=== PATIENT | male | born 1940 | race Caucasian/White ===

== ENCOUNTER 2016-10-06 13:43 | Inpatient (IN) | payer OTHER, MEDICARE ==
[~2016-10-06] VITALS: Ht 182.9 cm; Wt 55.0 kg
[2016-10-06 13:46] VITALS: BP 90/51; PULSE 95; RESP 14; TEMP 97.6; O2SAT 95
[2016-10-06] MEDS ORDERED: PRAD75CA PO (14:25)
[2016-10-06] MEDS ORDERED: SODIUM CHLOR 0.9% 1000 ML INJ 1,000 ML IV SCH (14:33)
[2016-10-06] MEDS ORDERED: MORPHINE SULFATE 8 MG/ML INJ IV PUSH ONE (14:45)
[2016-10-06] MEDS ORDERED: ONDANSETRON HCL 4 MG/2 ML VIAL IVP ONE (14:45)
--- NOTE | 2016-10-06 14:56 | RADRPT ---
EXAM DATE/TIME: 10/06/2016 14:35 [facility] COMPARISON: No previous studies available for comparison. INDICATIONS : Fever, constipation, short of breath. MEDICAL HISTORY : None. SURGICAL HISTORY : None. ENCOUNTER: Initial ACUITY: 1 day PAIN SCORE: 0/10 LOCATION: Bilateral chest FINDINGS: Lungs are slightly hyperexpanded. There are subcentimeter nodular opacities noted in the left lower l obe. Cardiomediastinal contours are within normal limits. Bony thorax is intact. CONCLUSION: 1. At least 2 subcentimeter nodular opacities in the left lower lobe. The largest may reflect a nippl e shadow. This can be further evaluated with CT examination on outpatient basis. Jonah Rodriguez MD on October 06, 2016 at 14:52 Board Certified Radiologist. This report was verified electronically.
[2016-10-06 15:22] VITALS: BP 120/58; PULSE 70; RESP 15; O2SAT 96
[2016-10-06 15:23] LABS: AUTOMATED NEUTROPHIL # 4.4 TH/MM3 (1.8-7.7); BASOPHIL % 0.2 % (0.0-2.0); EOSINOPHIL # 0.2 TH/MM3 (0-0.4); EOSINOPHIL % 1.8 % (0.0-4.0); HEMATOCRIT 44.1 % (39.0-51.0); HEMO FLAGS DIFF FINAL; LYMPH % 41.5 % (9.0-44.0); LYMPHOCYTE # 4.1 TH/MM3 (1.0-4.8); MEAN CELL VOLUME 87.9 FL (80.0-100.0); MEAN CORPUSCULAR HEMOGLOBIN 29.1 PG (27.0-34.0); MEAN CORPUSCULAR HGB CONC 33.2 % (32.0-36.0); MONO % 12.2 % (0.0-8.0); NEUT % 44.3 % (16.0-70.0); PLATELET COUNT 371 TH/MM3 (150-450); RED BLOOD COUNT 5.02 MIL/MM3 (4.50-5.90); RED CELL DISTRIBUTION WIDTH 14.8 % (11.6-17.2)
--- NOTE | 2016-10-06 15:29 | PD ---
HPI Chief Complaint: Abnormal Results Time Seen by Provider: 15:24 Travel History International Travel<30 days: Yes Contact w/Intl Traveler<30days: Yes Name of Country Traveled to: [place] Traveled to known affect area: No History of Present Illness HPI 75-year-old patient that presents to the ED for evaluation of abnormal CT scan. Patient states that he was recently nostril to the [place] [facility] and he developed a DVT on his right leg. Per patient at the time they put him on Lovenox injections in the let him come back. Patient has been taking Pradaxa since. Per patient ever since his been developing some abdominal pain as well as nausea and vomiting. Per patient he has lost a lot of weight. Bowel movements have been normal but more frequent. He denies any chest pain. He denies any shortness of breath. He is a long standing smoker. He states compliant with the Pradaxa. Per patient he on was seen by Dr. Love who perform a CT scan at that today and the CT scan results came back today which show concerning for possible ischemic bowel. We have received the reports by Dr. Love which showed abnormal results. Patient was sent here for further evaluation as there is concern for ischemia. Patient states that he's also been losing a lot of weight. He denies any other medical issue. No history of cancer.. PFSH Past Medical History Hx Anticoagulant Therapy: Yes (PRADEXA) Social History Alcohol Use: No Tobacco Use: Yes Substance Use: No Allergies-Medications (Allergen,Severity, Reaction): Coded Allergies: No Known Allergies (Unverified , 10/06/16) Reported Meds & Prescriptions Reported Meds & Active Scripts Active Reported Pradaxa (Dabigatran) 75 Mg Cap 75 Mg PO BID Review of Systems Except as stated in HPI: all other systems reviewed are Neg Physical Exam Narrative GENERAL: SKIN: Warm and dry. HEAD: Atraumatic. Normocephalic. EYES: Pupils equal and round. No scleral icterus. No injection or drainage. ENT: No nasal bleeding or discharge. Mucous membranes pink and moist. Tongue is midline. No uvula deviation. NECK: Trachea midline. No JVD. CARDIOVASCULAR: Regular rate and rhythm. No murmurs, S3, S4. RESPIRATORY: No accessory muscle use. Clear to auscultation. Breath sounds equal bilaterally. GASTROINTESTINAL: Abdomen soft, patient has reproducible pain on the epigastric as well as the lower abdomen, nondistended. Hepatic and splenic margins not palpable. MUSCULOSKELETAL: Extremities without clubbing, cyanosis, or edema. No obvious deformities. NEUROLOGICAL: Awake and alert. No obvious cranial nerve deficits. Motor grossly within normal limits. Five out of 5 muscle strength in the arms and legs. Normal speech. PSYCHIATRIC: Appropriate mood and affect; insight and judgment normal. Data Data Last Documented VS Vital Signs Date Time Temp Pulse Resp B/P Pulse Ox O2 Delivery O2 Flow Rate FiO2 10/06/16 17:35 65 15 100/55 96 Room Air 10/06/16 13:46 97.6 Orders Complete Blood Count With Diff (10/06/16 14:33) Comprehensive Metabolic Panel (10/06/16 14:33) Lipase (10/06/16 14:33) Lactic Acid (10/06/16 14:33) Prothrombin Time / Inr (Pt) (10/06/16 14:33) Act Partial Throm Time (Ptt) (10/06/16 14:33) Urinalysis - C+S If Indicated (10/06/16 14:33) Iv Access Insert/Monitor (10/06/16 14:33) Oximetry (10/06/16 14:33) Ondansetron Inj (Zofran Inj) (10/06/16 14:45) Sodium Chlor 0.9% 1000 Ml Inj (Ns 1000 M (10/06/16 14:33) Electrocardiogram (10/06/16 14:33) Morphine Inj (Morphine Inj) (10/06/16 14:45) Chest, Single Ap (10/06/16 ) Amylase (10/06/16 15:02) Cta Abd/Pel W Iv Contrast W 3d (10/06/16 ) Blood Culture (10/06/16 16:23) Iohexol 350 Inj (Omnipaque 350 Inj) (10/06/16 17:05) Admit Order (Ed Use Only) (10/06/16 18:47) Labs Laboratory Tests Test 10/06/16 10/06/16 10/06/16 10/06/16 14:45 15:08 15:09 15:45 White Blood Count 10.0 TH/MM3 Red Blood Count 5.02 MIL/MM3 Hemoglobin 14.6 GM/DL Hematocrit 44.1 % Mean Corpuscular Volume 87.9 FL Mean Corpuscular Hemoglobin 29.1 PG Mean Corpuscular Hemoglobin 33.2 % Concent Red Cell Distribution Width 14.8 % Platelet Count 371 TH/MM3 Mean Platelet Volume 7.2 FL Neutrophils (%) (Auto) 44.3 % Lymphocytes (%) (Auto) 41.5 % Monocytes (%) (Auto) 12.2 % Eosinophils (%) (Auto) 1.8 % Basophils (%) (Auto) 0.2 % Neutrophils # (Auto) 4.4 TH/MM3 Lymphocytes # (Auto) 4.1 TH/MM3 Monocytes # (Auto) 1.2 TH/MM3 Eosinophils # (Auto) 0.2 TH/MM3 Basophils # (Auto) 0.0 TH/MM3 CBC Comment DIFF FINAL Differential Comment Sodium Level 129 MEQ/L Potassium Level 5.4 MEQ/L Chloride Level 100 MEQ/L Carbon Dioxide Level 21.3 MEQ/L Anion Gap 8 MEQ/L Blood Urea Nitrogen 14 MG/DL Creatinine 1.13 MG/DL Estimat Glomerular Filtration 63 ML/MIN Rate Random Glucose 73 MG/DL Calcium Level 7.7 MG/DL Total Bilirubin 0.5 MG/DL Aspartate Amino Transf 33 U/L (AST/SGOT) Alanine Aminotransferase 8 U/L (ALT/SGPT) Alkaline Phosphatase 120 U/L Total Protein 5.9 GM/DL Albumin 1.3 GM/DL Amylase Level 30 U/L Lipase 91 U/L Lactic Acid Level 1.6 mmol/L Prothrombin Time 16.1 SEC Prothromb Time International 1.4 RATIO Ratio Activated Partial 48.8 SEC Thromboplast Time Urine Color YELLOW Urine Turbidity HAZY Urine pH 5.5 Urine Specific [place] 1.028 Urine Protein TRACE mg/dL Urine Glucose (UA) NEG mg/dL Urine Ketones NEG mg/dL Urine Occult Blood NEG Urine Nitrite NEG Urine Bilirubin NEG Urine Urobilinogen LESS THAN 2.0 MG/DL Urine Leukocyte Esterase NEG Urine RBC 1 /hpf Urine WBC 4 /hpf Urine Squamous Epithelial <1 /hpf Cells Urine Amorphous Sediment RARE Urine Mucus FEW /lpf Microscopic Urinalysis Comment CULT NOT INDICATED MDM Medical Decision Making Medical Screen Exam Complete: Yes Emergency Medical Condition: Yes Medical Record Reviewed: Yes Interpretation(s) CBC & BMP Diagram 10/06/16 14:45 Last Impressions Chest X-Ray 10/06/16 0000 Signed Impressions: Service Date/Time: Thursday, October 06, 2016 14:35 - CONCLUSION: 1. At least 2 subcentimeter nodular opacities in the left lower lobe. The largest may reflect a nipple shadow. This can be further evaluated with CT examination on outpatient basis. Jonah Rodriguez MD Abdomen/Pelvis CT 10/06/16 0000 Signed Impressions: Service Date/Time: Thursday, October 06, 2016 16:56 - CONCLUSION: 1. Widely patent abdominal aorta and mesenteric arteries. No significant mesenteric artery stenosis. 2. Mild diffuse wall thickening involving multiple loops of ileum with minimally dilated loops of more proximal jejunum. No focal transition point. Differential considerations include infectious/inflammatory enteritis vs outflow mesenteric venous congestion which is not evaluated on this exam due to early arterial phase technique. Clinical correlation is recommended. Further evaluation may be performed with ultrasound examination and if necessary portal venous phase CT examination. Jonah Rodriguez MD LFTs WNL Lipase WNL Differential Diagnosis Ischemic bowel versus acute abdominal pain versus obstruction versus enteritis versus gastroenteritis Narrative Course 75-year-old male that presents to the ED for evaluation of abnormal CT scan. Patient was properly examined and was found to have signs and symptoms consistent with appears to be abdominal pain. Patient had a CT scan done outpatient that showed possible ischemic changes but they wanted correlation with physical exam as well as lactic acid and other studies. Case was discussed in my attending Dr. Alanis who agrees with plan. Labs and imaging were ordered. labs and imaging showed hyponatremia, hyperkalemia, no ischemia, enteritis. patient still in pain. At this time because of his weight loss, pain I do recommend admission for obs for intractable pain. My attending Dr Alanis agrees with this plan. Dr Riojas agrees to admission. Diagnosis Primary Impression: Intractable abdominal pain Additional Impressions: Enteritis Hyperkalemia Hyponatremia Admitting Information Admitting Physician Requests: Observation Kolby Lo Oct 06, 2016 15:29
[2016-10-06 15:31] VITALS: BP 135/60; PULSE 70; RESP 15; O2SAT 96
[2016-10-06 15:39] LABS: APTT (PATIENT) 48.8 SEC (24.3-30.1); INTERNATIONAL NORMALIZED RATIO 1.4 RATIO; PROTHROMBIN TIME - PATIENT 16.1 SEC (9.8-11.6)
[2016-10-06 15:43] LABS: ALT (GPT) 8 U/L (12-78); ANION GAP 8 MEQ/L (5-15); AST (GOT) 33 U/L (15-37); BICARBONATE 21.3 MEQ/L (21.0-32.0); BLOOD UREA NITROGEN 14 MG/DL (7-18); CHLORIDE 100 MEQ/L (98-107); GLOMERULAR FILTRATION RATE 63 ML/MIN (>89); POTASSIUM 5.4 MEQ/L (3.5-5.1); SODIUM (NA) 129 MEQ/L (136-145)
[2016-10-06 15:44] LABS: ALKALINE PHOSPHATASE 120 U/L (45-117); TOTAL BILIRUBIN ADULT 0.5 MG/DL (0.2-1.0)
[2016-10-06 16:27] LABS: BLOOD, URINE NEG (NEG); COMMENT (UR) CULT NOT INDICATED; CULTURE IF INDICATED CULT NOT INDICATED; GLUCOSE,URINE NEG (NEG); KETONE, URINE NEG (NEG); MUCUS URINE FEW /lpf (OCC); NITRITE,URINE NEG (NEG); PH, URINE 5.5 (5.0-8.5); SQUAMOUS EPITHELIAL CELL URINE <1 /hpf (0-5); URINE COLOR YELLOW (YELLW/STRAW)
[2016-10-06] MEDS ORDERED: IOHEXOL 350 MG/ML 10 ML VIAL (for RAD DIAG) IV ONE (17:05)
[2016-10-06 17:35] VITALS: BP 100/55; PULSE 65; RESP 15; O2SAT 96
--- NOTE | 2016-10-06 17:59 | RADRPT ---
EXAM DATE/TIME: 10/06/2016 16:56 [facility] COMPARISON: No previous studies available for comparison. EXTERNAL COMPARISON : [facility] October 03, 2016 INDICATIONS : Evaluate for ischemic bowel. IV CONTRAST: 95 cc Omnipaque 350 (iohexol) IV ORAL CONTRAST: No oral contrast ingested. RADIATION DOSE: 4.19 CTDIvol (mGy) MEDICAL HISTORY : Deep venous thrombosis. SURGICAL HISTORY : Appendectomy. ENCOUNTER: Initial ACUITY: 2 months PAIN SCALE: 5/10 LOCATION: Bilateral abdomen TECHNIQUE: Volumetric scanning was performed using a multi-row detector CT scanner. The data was post processed with a variety of visualization algorithms including full volume maximum intensity projection, multi -planar sliding thin slab reformation, curved planar reformation, and surface rendering techniques. Using automated exposure control and adjustment of the mA and/or kV according to patient size, radiat ion dose was kept as low as reasonably achievable to obtain optimal diagnostic quality images. DICOM format image data is available electronically for review and comparison. ANGIOGRAPHIC FINDINGS: The abdominal aorta is normal in caliber without evidence for aneurysm or significant flow-limiting s tenosis. The iliac arteries are widely patent bilaterally. Visualized portions of the femoral arterie s are also widely patent. Celiac, SMA, and NELLY are widely patent. There are single bilateral renal arteries which are widely pa tent. GENERAL FINDINGS: Visualized lung bases demonstrate mild scarring in the right lung base. There is reflux of contrast i nto the intrahepatic IVC which may reflect some degree of right heart dysfunction. Evaluation of the abdominal viscera is limited due to arterial phase technique. Liver, spleen, adrenal glands, pancreas , and gallbladder are grossly unremarkable. Kidneys demonstrate symmetrical enhancement without evide nce for hydronephrosis or radiopaque renal calculi. 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 Beyond this, proximal jejunal loops are mildly distended and fluid-filled without a defini te transition point to a smaller caliber ileal loops. However, the smaller caliber loops demonstrate wall thickening that is out of proportion for the degree of decompression. Bowel appears grossly unre markable with contrast in it in the descending colon. Bladder is mildly distended and appears unremarkable. Prostate is nonspecifically enlarged. There are no abnormal lytic or blastic bony lesions. CONCLUSION: 1. Widely patent abdominal aorta and mesenteric arteries. No significant mesenteric artery stenosis. 2. Mild diffuse wall thickening involving multiple loops of ileum with minimally dilated loops of mor e proximal jejunum. No focal transition point. Differential considerations include infectious/inflamm atory enteritis vs outflow mesenteric venous congestion which is not evaluated on this exam due to ea rly arterial phase technique. Clinical correlation is recommended. Further evaluation may be performe d with ultrasound examination and if necessary portal venous phase CT examination. Jonah Rodriguez MD on October 06, 2016 at 17:35 Board Certified Radiologist. This report was verified electronically.
[2016-10-06] MEDS ORDERED: HYDROmorphone HCL PF 1 MG/ML VIAL IV PUSH PRN (19:00)
[2016-10-06] MEDS ORDERED: MAGNESIUM HYDROXIDE SUSP 30 ML CUP PO PRN (19:00)
[2016-10-06] MEDS ORDERED: LACTULOSE SYRUP 20 GM/30 ML CUP PO PRN (19:00)
[2016-10-06] MEDS ORDERED: NALOXONE HCL 0.4 MG/ML AMP IV PRN (19:00)
[2016-10-06] MEDS ORDERED: BISACODYL 10 MG SUPP RECTAL PRN (19:00)
[2016-10-06] MEDS ORDERED: ACETAMINOPHEN/HYDROcodone 325 MG/5 MG TAB PO PRN (19:00)
[2016-10-06] MEDS ORDERED: SENNOSIDES 8.6 MG TAB PO PRN (19:00)
[2016-10-06] MEDS ORDERED: ACETAMINOPHEN/HYDROcodone 325 MG/10 MG TAB PO PRN (19:00)
[2016-10-06] MEDS ORDERED: ONDANSETRON HCL 4 MG/2 ML VIAL IVP PRN (19:00)
[2016-10-06] MEDS ORDERED: SODIUM CHLORIDE 0.9% FLUSH 10 ML FLUSH IV FLUSH PRN (19:00)
[2016-10-06] MEDS ORDERED: METOCLOPRAMIDE HCL 10 MG/2 ML VIAL IV PUSH ONE (19:00)
[2016-10-06] MEDS: SODIUM CHLORIDE 0.9% FLUSH 10 ML FLUSH IV FLUSH SCH (21:00)
[2016-10-06] MEDS ORDERED: DOCUSATE SODIUM 50 MG/SENNA 8.6 MG TAB PO SCH (21:00)
[2016-10-06] MEDS: SODIUM CHLOR 0.9% 1000 ML INJ 1,000 ML IV SCH (21:20)
--- NOTE | 2016-10-06 22:31 | HHI.HP ---
[facility] Service [facility] Primary Care Physician Non-Staff Admission Diagnosis Intractable abdominal pain with N/V, enteritis, lung nodules Diagnoses: Chief Complaint: abdominal pain, nausea and vomiting Travel History International Travel<30 Days: Yes Contact w/Intl Traveler <30 Da: Yes Name of Country Traveled to: [place] Traveled to Known Affected Are: No History of Present Illness Written by Nelda Cummings, acting as scribe for [Re] on 10/06/16 at 22:10. 75 y/o male with a history of abdominal pain and nausea and vomiting for the last 8 months. Patient states he has lost 42 lbs in 8 months, sick feeling after eating, easily full feeling, if he over eats he has severe nausea and vomiting. Also complains of 2-3 times a day diarrhea, green in color, with mucus for the last 6 weeks. Denies any black or red colored stools. The only medication he takes is Pradaxa for a DVT in his right leg August 2016. He was diagnosed in [place] and he was treated with Lovenox and recently seen his PCP that then switched him to Pradaxa. Denies any recent antibiotic use. Denies any hematuria or dysuria. He states he has slight fevers but does not measure it at home, he states his told him he was warm feeling. Review of Systems Constitutional: COMPLAINS OF: Weight loss, DENIES: Fever, Chills Respiratory: DENIES: Cough, Sputum production, Shortness of breath Cardiovascular: DENIES: Chest pain, Lower Extremity Edema Gastrointestinal: COMPLAINS OF: Abdominal pain, Diarrhea, Nausea, Vomiting, DENIES: Black stools, Bloody stools, Constipation Genitourinary: DENIES: Hematuria, Dysuria Musculoskeletal: DENIES: Back pain, Neck pain Integumentary: DENIES: Rash Hematologic/lymphatic: DENIES: Lymphadenopathy Neurologic: DENIES: Headache Past Family Social History Past Medical History Reoccurring Right leg DVT, 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 Past Surgical History Appendectomy Tonsillectomy Reported Medications Reported Meds & Active Scripts Active Reported Pradaxa (Dabigatran) 75 Mg Cap 75 Mg PO BID Allergies: Coded Allergies: No Known Allergies (Unverified , 10/06/16) Active Ordered Medications Current Medications Medications (Trade) Dose Ordered Sig/Margo Route Start Time Stop Time Status Last Admin (NS 1000 ml Inj) 1,000 ml @ 100 mls/hr Q10H IV 10/06/16 18:47 10/06/16 21:20 (NS Flush) 2 ml UNSCH PRN IV FLUSH 10/06/16 19:00 (NS Flush) 2 ml BID IV FLUSH 10/06/16 21:00 10/06/16 21:00 (Zofran Inj) 4 mg Q6H PRN IVP 10/06/16 19:00 (Narcan Inj) 0.4 mg UNSCH PRN IV 10/06/16 19:00 (Maddison-Colace) 1 tab BID PO 10/06/16 21:00 (Milk Of Magnesia Liq) 30 ml Q12H PRN PO 10/06/16 19:00 (Senokot) 17.2 mg Q12H PRN PO 10/06/16 19:00 (Dulcolax Supp) 10 mg DAILY PRN RECTAL 10/06/16 19:00 (Lactulose Liq) 30 ml DAILY PRN PO 10/06/16 19:00 ([place] 5-325 Mg) 1 tab Q4H PRN PO 10/06/16 19:00 ([place] 10-325 Mg) 1 tab Q6H PRN PO 10/06/16 19:00 (Dilaudid Pf Inj) 0.5 mg Q4H PRN IV PUSH 10/06/16 19:00 Family History Mom: HF, age 82 Social History Tobacco use: 1/2 PPD Alcohol use: 2 beers a week Illicit drug use: Denies Physical Exam Vital Signs Vital Signs Date Time Temp Pulse Resp B/P Pulse Ox O2 Delivery O2 Flow Rate FiO2 10/06/16 17:35 65 15 100/55 96 Room Air 10/06/16 15:31 70 15 135/60 96 Room Air 10/06/16 15:22 70 15 120/58 96 Room Air 10/06/16 15:22 15 96 Room Air 10/06/16 13:46 97.6 95 14 90/51 95 Physical Exam GENERAL: This is a thin, malnourished patient SKIN: No rashes, ecchymoses or lesions. Cool and dry. HEAD: Atraumatic. Normocephalic. No temporal or scalp tenderness. EYES: Pupils equal round and reactive. Extraocular motions intact ENT: Nose without bleeding, purulent drainage or septal hematoma. NECK: Trachea midline. No JVD or lymphadenopathy. CARDIOVASCULAR: Regular rate and rhythm without murmurs, gallops, or rubs. RESPIRATORY: Clear to auscultation. Breath sounds equal bilaterally. No wheezes , rales, or rhonchi. GASTROINTESTINAL: Abdomen soft, tender, nondistended. No hepato-splenomegaly, or palpable masses. No guarding. MUSCULOSKELETAL: Extremities without clubbing, cyanosis, or edema. No joint tenderness, effusion, or edema noted. No calf tenderness. NEUROLOGICAL: Awake and alert. Motor and sensory grossly within normal limits. Normal speech. Laboratory Laboratory Tests Test 10/06/16 10/06/16 10/06/16 10/06/16 14:45 15:08 15:09 15:45 White Blood Count 10.0 Red Blood Count 5.02 Hemoglobin 14.6 Hematocrit 44.1 Mean Corpuscular Volume 87.9 Mean Corpuscular Hemoglobin 29.1 Mean Corpuscular Hemoglobin 33.2 Concent Red Cell Distribution Width 14.8 Platelet Count 371 Mean Platelet Volume 7.2 Neutrophils (%) (Auto) 44.3 Lymphocytes (%) (Auto) 41.5 Monocytes (%) (Auto) 12.2 Eosinophils (%) (Auto) 1.8 Basophils (%) (Auto) 0.2 Neutrophils # (Auto) 4.4 Lymphocytes # (Auto) 4.1 Monocytes # (Auto) 1.2 Eosinophils # (Auto) 0.2 Basophils # (Auto) 0.0 CBC Comment DIFF FINAL Differential Comment Sodium Level 129 Potassium Level 5.4 Chloride Level 100 Carbon Dioxide Level 21.3 Anion Gap 8 Blood Urea Nitrogen 14 Creatinine 1.13 Estimat Glomerular Filtration 63 Rate Random Glucose 73 Calcium Level 7.7 Total Bilirubin 0.5 Aspartate Amino Transf 33 (AST/SGOT) Alanine Aminotransferase 8 (ALT/SGPT) Alkaline Phosphatase 120 Total Protein 5.9 Albumin 1.3 Amylase Level 30 Lipase 91 Lactic Acid Level 1.6 Prothrombin Time 16.1 Prothromb Time International 1.4 Ratio Activated Partial 48.8 Thromboplast Time Urine Color YELLOW Urine Turbidity HAZY Urine pH 5.5 Urine Specific [place] 1.028 Urine Protein TRACE Urine Glucose (UA) NEG Urine Ketones NEG Urine Occult Blood NEG Urine Nitrite NEG Urine Bilirubin NEG Urine Urobilinogen LESS THAN 2.0 Urine Leukocyte Esterase NEG Urine RBC 1 Urine WBC 4 Urine Squamous Epithelial <1 Cells Urine Amorphous Sediment RARE Urine Mucus FEW Microscopic Urinalysis Comment CULT NOT INDICATED Date/Time Procedure Status Source Growth 10/06/16 15:15 Aerobic Blood Culture Received Blood Peripheral Pending 10/06/16 15:15 Anaerobic Blood Culture Received Blood Peripheral Pending Result Diagram: 10/06/16 1445 10/06/16 1445 Imaging Last Impressions Chest X-Ray 10/06/16 0000 Signed Impressions: Service Date/Time: Thursday, October 06, 2016 14:35 - CONCLUSION: 1. At least 2 subcentimeter nodular opacities in the left lower lobe. The largest may reflect a nipple shadow. This can be further evaluated with CT examination on outpatient basis. Jonah Rodriguez MD Abdomen/Pelvis CT 10/06/16 0000 Signed Impressions: Service Date/Time: Thursday, October 06, 2016 16:56 - CONCLUSION: 1. Widely patent abdominal aorta and mesenteric arteries. No significant mesenteric artery stenosis. 2. Mild diffuse wall thickening involving multiple loops of ileum with minimally dilated loops of more proximal jejunum. No focal transition point. Differential considerations include infectious/inflammatory enteritis vs outflow mesenteric venous congestion which is not evaluated on this exam due to early arterial phase technique. Clinical correlation is recommended. Further evaluation may be performed with ultrasound examination and if necessary portal venous phase CT examination. Jonah Rodriguez MD Assessment and Plan Problem List: (1) Intractable abdominal pain ICD Code: R10.9 Status: Acute (2) Hyperkalemia ICD Code: E87.5 Status: Acute (3) Hyponatremia ICD Code: E87.1 Status: Acute Assessment and Plan 75 y/o male with a history of abdominal pain and nausea and vomiting for the last 8 months. Intractable abdominal pain with nausea, likely infectious due to recent travel to [place]. Also has been to [place], [place] Abdomen CT reviewed and shows Widely patent abdominal aorta and mesenteric arteries. No significant mesenteric artery stenosis. Mild diffuse wall thickening involving multiple loops of ileum with minimally dilated loops of more proximal jejunum. No focal transition point. Differential considerations include infectious/inflammatory enteritis vs outflow mesenteric venous congestion which is not evaluated on this exam due to early arterial phase technique. -Consult GI for recommendations -Stool studies ordered- r/o parasitic infections -Hold Pradaxa for now in case of GI procedure -Antiemetics as needed Hyperkalemia and hyponatremia. Potassium 5.4, NA 129 -IVF with NS -BMP in AM, and trend Abnormal chest xray finding Xray reviewed and shows at least 2 subcentimeter nodular opacities in the left lower lobe. The largest may reflect a nipple shadow. This can be further evaluated with CT examination on outpatient basis. -Patient does not want expensive inpatient workup, he rather do work up out patient -Patient will need CT chest as outpatient Hx of Recent DVT - start on lovenox therapeutic dose - will stop 12hrs ahead of possible GI procedures- if no procedures, then will ct pradaxa DVT prophylaxis: Lovenox therapeutic dose This note was transcribed by scribe [Nelda Cummings]. I, Dr. Conrad Grimaldo personally performed the history, physical exam, and medical decision making; and confirmed the accuracy of the information in the transcribed note. Authenticated by Dr. Conrad Grimaldo on 10/06/16 at 22:10. Discussed Condition With Patient, and ED physician Nelda Cummings Oct 06, 2016 22:31 Conrad Grimaldo MD Oct 07, 2016 07:18
[2016-10-06] MEDS ORDERED: METOCLOPRAMIDE HCL 10 MG/2 ML VIAL IV PUSH PRN (22:45)
[2016-10-07] VITALS (7 sets, daily range): BP systolic 91–137; BP diastolic 54–92; PULSE 56–81; RESP 16–20; TEMP 96.5–98.7; O2SAT 94–98
[2016-10-07] MEDS: SODIUM CHLOR 0.9% 1000 ML INJ 1,000 ML IV SCH ×2 (04:29→15:05)
[2016-10-07 07:01] LABS: AUTOMATED NEUTROPHIL # 4.3 TH/MM3 (1.8-7.7); BASOPHIL % 0.4 % (0.0-2.0); EOSINOPHIL # 0.2 TH/MM3 (0-0.4); EOSINOPHIL % 2.9 % (0.0-4.0); HEMATOCRIT 36.6 % (39.0-51.0); HEMO FLAGS DIFF FINAL; LYMPH % 31.9 % (9.0-44.0); LYMPHOCYTE # 2.7 TH/MM3 (1.0-4.8); MEAN CELL VOLUME 87.6 FL (80.0-100.0); MEAN CORPUSCULAR HEMOGLOBIN 28.3 PG (27.0-34.0); MEAN CORPUSCULAR HGB CONC 32.2 % (32.0-36.0); MONO % 13.7 % (0.0-8.0); NEUT % 51.1 % (16.0-70.0); PLATELET COUNT 331 TH/MM3 (150-450); RED BLOOD COUNT 4.17 MIL/MM3 (4.50-5.90); RED CELL DISTRIBUTION WIDTH 14.1 % (11.6-17.2); WHITE BLOOD COUNT 8.4 TH/MM3 (4.0-11.0)
[2016-10-07 07:27] LABS: BICARBONATE 25.9 MEQ/L (21.0-32.0)
[2016-10-07 07:42] LABS: CALCIUM-PROTEIN CORRECTED 8.5 MG/DL (8.5-10.1)
--- NOTE | 2016-10-07 07:55 | PD.CONS ---
HPI History of Present Illness This is a 75 year old male who presented to the ER for evaluation of nausea, vomiting, diarrhea, and abdominal pain with associated weight loss. His symptoms began about 8 months ago and he has lost 42 lbs during this time period , but has been more often and severe over the past 6 weeks. He states that he gets hungry, but just cannot eat and cannot force himself to eat. He has frequent nausea and occasionally, probably twice over the past 6 months. He states he has had intermittent diarrhea, usually 2-3 loose stools per day. He did see a small amount of red blood mixed within his stool about a month ago, but has not had any further episodes. He complains of LUQ cramping- this comes and goes. Sometimes it is related to food intake and other times, it does not seem to be related to anything. He has never had an egd/colonoscopy and states that he does not want one either. He has a history of right lower extremity DVT (diagnosed in August of 2016) and takes Pradaxa. He has not been on antibiotics in the last 6 months to a year. He denies any new medications. He recently traveled to [place] about 3 weeks ago. He travels for work and states that he was in the [place] last year. He denies any family history of esophageal, gastric, or colorectal cancer. CT scan abdomen and pelvis ()------> 1. Widely patent abdominal aorta and mesenteric arteries. No significant mesenteric artery stenosis. 2. Mild diffuse wall thickening involving multiple loops of ileum with minimally dilated loops of more proximal jejunum. No focal transition point. Differential considerations include infectious/inflammatory enteritis vs outflow mesenteric venous congestion which is not evaluated on this exam due to early arterial phase technique. Clinical correlation is recommended. Further evaluation may be performed with ultrasound examination and if necessary portal venous phase CT examination. (Amanda Charles) PFSH Past Medical History Reoccurring Right leg DVT, 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 Past Surgical History Appendectomy Tonsillectomy (Amanda Charles) Coded Allergies: No Known Allergies (Unverified , 10/06/16) Medications Allergies Coded Allergies Type Severity Reaction Last Updated Verified No Known Allergies 10/06/16 No Active Scripts Medications Dose Route/Sig Days Date Category Pradaxa (Dabigatran) 75 Mg Cap 75 Mg PO BID 10/06/16 Reported Family History Mom from heart failure at age 82 Father in WW2. Social History Smokes 1/2 PPD for about 30 years. Drinks 2 beers a week No illicit drug use. (Amanda Charles) Review of Systems Constitutional: COMPLAINS OF: Fatigue, Weight loss, Change in appetite, DENIES : Fever, Chills Respiratory: COMPLAINS OF: Shortness of breath (mild with exertion), DENIES: Cough Cardiovascular: DENIES: Chest pain Gastrointestinal: COMPLAINS OF: Abdominal pain, Diarrhea, Nausea, Vomiting, Anorexia, DENIES: Black stools, Bloody stools, Constipation, Swelling of Abdomen, Heartburn Musculoskeletal: DENIES: Joint pain Integumentary: DENIES: Rash Hematologic/lymphatic: DENIES: Bruising Neurologic: DENIES: Headache Psychiatric: DENIES: Confusion (Amanda Charles) GI Exam Vitals I&O Vital Signs Date Time Temp Pulse Resp B/P Pulse Ox O2 Delivery O2 Flow Rate FiO2 10/07/16 03:18 96.5 81 20 137/66 95 10/07/16 00:04 98.7 75 20 104/61 95 10/06/16 17:35 65 15 100/55 96 Room Air 10/06/16 15:31 70 15 135/60 96 Room Air 10/06/16 15:22 70 15 120/58 96 Room Air 10/06/16 15:22 15 96 Room Air 10/06/16 13:46 97.6 95 14 90/51 95 I/O 10/06/16 10/06/16 10/06/16 10/07/16 10/07/16 10/07/16 07:00 15:00 23:00 07:00 15:00 23:00 Intake Total 243 ml Output Total 750 ml Balance -507 ml Intake Oral 243 ml Output Urine Total 750 ml # Voids 4 Imaging Last Impressions Chest X-Ray 10/06/16 0000 Signed Impressions: Service Date/Time: Thursday, October 06, 2016 14:35 - CONCLUSION: 1. At least 2 subcentimeter nodular opacities in the left lower lobe. The largest may reflect a nipple shadow. This can be further evaluated with CT examination on outpatient basis. Jonah Rodriguez MD Abdomen/Pelvis CT 10/06/16 0000 Signed Impressions: Service Date/Time: Thursday, October 06, 2016 16:56 - CONCLUSION: 1. Widely patent abdominal aorta and mesenteric arteries. No significant mesenteric artery stenosis. 2. Mild diffuse wall thickening involving multiple loops of ileum with minimally dilated loops of more proximal jejunum. No focal transition point. Differential considerations include infectious/inflammatory enteritis vs outflow mesenteric venous congestion which is not evaluated on this exam due to early arterial phase technique. Clinical correlation is recommended. Further evaluation may be performed with ultrasound examination and if necessary portal venous phase CT examination. Jonah Rodriguez MD Laboratory Test 10/06/16 10/06/16 10/06/16 10/06/16 14:45 15:08 15:09 15:45 White Blood Count 10.0 TH/MM3 Red Blood Count 5.02 MIL/MM3 Hemoglobin 14.6 GM/DL Hematocrit 44.1 % Mean Corpuscular Volume 87.9 FL Mean Corpuscular Hemoglobin 29.1 PG Mean Corpuscular Hemoglobin 33.2 % Concent Red Cell Distribution Width 14.8 % Platelet Count 371 TH/MM3 Mean Platelet Volume 7.2 FL Neutrophils (%) (Auto) 44.3 % Lymphocytes (%) (Auto) 41.5 % Monocytes (%) (Auto) 12.2 % Eosinophils (%) (Auto) 1.8 % Basophils (%) (Auto) 0.2 % Neutrophils # (Auto) 4.4 TH/MM3 Lymphocytes # (Auto) 4.1 TH/MM3 Monocytes # (Auto) 1.2 TH/MM3 Eosinophils # (Auto) 0.2 TH/MM3 Basophils # (Auto) 0.0 TH/MM3 CBC Comment DIFF FINAL Differential Comment Sodium Level 129 MEQ/L Potassium Level 5.4 MEQ/L Chloride Level 100 MEQ/L Carbon Dioxide Level 21.3 MEQ/L Anion Gap 8 MEQ/L Blood Urea Nitrogen 14 MG/DL Creatinine 1.13 MG/DL Estimat Glomerular Filtration 63 ML/MIN Rate Random Glucose 73 MG/DL Calcium Level 7.7 MG/DL Total Bilirubin 0.5 MG/DL Aspartate Amino Transf 33 U/L (AST/SGOT) Alanine Aminotransferase 8 U/L (ALT/SGPT) Alkaline Phosphatase 120 U/L Total Protein 5.9 GM/DL Albumin 1.3 GM/DL Amylase Level 30 U/L Lipase 91 U/L Lactic Acid Level 1.6 mmol/L Prothrombin Time 16.1 SEC Prothromb Time International 1.4 RATIO Ratio Activated Partial 48.8 SEC Thromboplast Time Urine Color YELLOW Urine Turbidity HAZY Urine pH 5.5 Urine Specific [place] 1.028 Urine Protein TRACE mg/dL Urine Glucose (UA) NEG mg/dL Urine Ketones NEG mg/dL Urine Occult Blood NEG Urine Nitrite NEG Urine Bilirubin NEG Urine Urobilinogen LESS THAN 2.0 MG/DL Urine Leukocyte Esterase NEG Urine RBC 1 /hpf Urine WBC 4 /hpf Urine Squamous Epithelial <1 /hpf Cells Urine Amorphous Sediment RARE Urine Mucus FEW /lpf Microscopic Urinalysis Comment CULT NOT INDICATED Test 10/07/16 06:37 White Blood Count 8.4 TH/MM3 Red Blood Count 4.17 MIL/MM3 Hemoglobin 11.8 GM/DL Hematocrit 36.6 % Mean Corpuscular Volume 87.6 FL Mean Corpuscular Hemoglobin 28.3 PG Mean Corpuscular Hemoglobin 32.2 % Concent Red Cell Distribution Width 14.1 % Platelet Count 331 TH/MM3 Mean Platelet Volume 6.7 FL Neutrophils (%) (Auto) 51.1 % Lymphocytes (%) (Auto) 31.9 % Monocytes (%) (Auto) 13.7 % Eosinophils (%) (Auto) 2.9 % Basophils (%) (Auto) 0.4 % Neutrophils # (Auto) 4.3 TH/MM3 Lymphocytes # (Auto) 2.7 TH/MM3 Monocytes # (Auto) 1.2 TH/MM3 Eosinophils # (Auto) 0.2 TH/MM3 Basophils # (Auto) 0.0 TH/MM3 CBC Comment DIFF FINAL Differential Comment Sodium Level 135 MEQ/L Potassium Level 4.0 MEQ/L Chloride Level 104 MEQ/L Carbon Dioxide Level 25.9 MEQ/L Anion Gap 5 MEQ/L Blood Urea Nitrogen 13 MG/DL Creatinine 0.87 MG/DL Estimat Glomerular Filtration 86 ML/MIN Rate Random Glucose 67 MG/DL Calcium Level 7.0 MG/DL Protein Corrected Calcium 8.5 MG/DL Total Protein 4.3 GM/DL Thyroid Stimulating Hormone 5.060 uIU/ML 3rd Gen Date/Time Procedure Status Source Growth 10/06/16 15:15 Aerobic Blood Culture Received Blood Peripheral Pending 10/06/16 15:15 Anaerobic Blood Culture Received Blood Peripheral Pending Physical Examination HEENT: Normocephalic; atraumatic; no jaundice. CHEST: CTA CARDIAC: RRR ABDOMEN: Soft, nondistended, mild LUQ tenderness; no hepatosplenomegaly; bowel sounds are present in all four quadrants. EXTREMITIES: No clubbing, cyanosis, or edema. SKIN: Normal; no rash; no jaundice. NANOTECHNOLOGIST: No focal deficits; alert and oriented times three. (Amanda Charles) Assessment and Plan Plan ASSESSMENT: - Abdominal pain with associated N/V/D. CT scan abdomen and pelvis (10/06/16)-- ----> 1. Widely patent abdominal aorta and mesenteric arteries. No significant mesenteric artery stenosis. 2. Mild diffuse wall thickening involving multiple loops of ileum with minimally dilated loops of more proximal jejunum. No focal transition point. Differential considerations include infectious/inflammatory enteritis vs outflow mesenteric venous congestion which is not evaluated on this exam due to early arterial phase technique. Clinical correlation is recommended. Further evaluation may be performed with ultrasound examination and if necessary portal venous phase CT examination. No abx in 6 months. Does frequently travel for [email or web address] last year and just returned from [place] 3 weeks ago. No hx of EGD/Colonoscopy. No known family hx of esophageal, gastric, colorectal cancer. Stool studies pending. He initially refused further evaluation with EGD/Colonoscopy but after long discussion, he is now agreeable. Will plan for egd/ colonoscopy in am. - Anorexia, Early Satiety, Abn. Wt. Loss. 42 lbs over 8 months. - Right lower extremity DVT (diagnosed in August of 2016) and takes Pradaxa. Now on lovenox. - LLL Lung nodule, CT scan recommended, patient refused and wants to proceed as outpatient. - TSH elevated 5.060. Per attending. PLAN: - Plan for egd/colonoscopy in am - Obtain consents - Clear liquids - NPO after MN - Golytely prep - Hold lovenox after MN - Monitor HH - AFP, CEA, Ca19-9 - Await stool studies - CBC, CMP in am - Supportive care - Further recommendations to follow based on results of above - Pt seen and examined by Dr. Gay and myself and this note is written on her behalf (Amanda Charles) Physician Comments seen, examined agree with above (Aleyda Gay MD) Amanda Charles Oct 07, 2016 07:55 Aleyda Gay MD Oct 07, 2016 18:22
[2016-10-07] MEDS: SODIUM CHLORIDE 0.9% FLUSH 10 ML FLUSH IV FLUSH SCH ×2 (08:59→20:58)
[2016-10-07] MEDS: ENOXAPARIN SODIUM 60 MG/0.6 ML SYRINGE SQ SCH ×2 (08:59→20:58)
--- NOTE | 2016-10-07 10:20 | HHI.PR ---
Subjective Remarks Pt tells me that he feels better however he continues to feel nauseous. Abdominal pain is improved. He was able to eat some breakfast but states that if he eats too much he will feel sick. Pt initially tells me that he doesn't want to do unnecessary workup and goes on to tell me that he doesn't feel that GI's recs EGD/colonoscopy were warranted and all "you want to do is get my business". He also states that last he was told that his "valves/blood supply" was blocked. I explained to him to I didn't have the full report from GI yet however if the recs are for EGD/colonoscopy then i strongly recommended that he do them as his came in weight weight loss, anorexia and n/v w abdominal pain. He tells me that no one explained to him why he really needs the EGD/ colonoscopy and states that he has done CT's and we should be able to treat him base on those studies. I explained to him that although we did review the CT studies, we do need to do further evaluation to be able to figure out what is causing his symptoms, especially him loosing weight and having anorexia, which is concerning for malignancy. I also did go over the CTA results showing patency of his art. I did also explain to him that he has some abnormalities noted on chest x-ray however since he refuses the chest CT he must f/u w his PCP and have a CT chest as an outpatient which he agrees w. Objective Vitals Vital Signs Date Time Temp Pulse Resp B/P Pulse Ox O2 Delivery O2 Flow Rate FiO2 10/07/16 07:48 98.2 69 16 99/58 94 10/07/16 03:18 96.5 81 20 137/66 95 10/07/16 00:04 98.7 75 20 104/61 95 10/06/16 17:35 65 15 100/55 96 Room Air 10/06/16 15:31 70 15 135/60 96 Room Air 10/06/16 15:22 70 15 120/58 96 Room Air 10/06/16 15:22 15 96 Room Air 10/06/16 13:46 97.6 95 14 90/51 95 I/O 10/06/16 10/06/16 10/06/16 10/07/16 10/07/16 10/07/16 07:00 15:00 23:00 07:00 15:00 23:00 Intake Total 243 ml Output Total 750 ml Balance -507 ml Intake Oral 243 ml Output Urine Total 750 ml # Voids 4 Result Diagram: 10/07/16 0637 10/07/16 0637 Imaging Last Impressions Chest X-Ray 10/06/16 0000 Signed Impressions: Service Date/Time: Thursday, October 06, 2016 14:35 - CONCLUSION: 1. At least 2 subcentimeter nodular opacities in the left lower lobe. The largest may reflect a nipple shadow. This can be further evaluated with CT examination on outpatient basis. Jonah Rodriguez MD Abdomen/Pelvis CT 10/06/16 0000 Signed Impressions: Service Date/Time: Thursday, October 06, 2016 16:56 - CONCLUSION: 1. Widely patent abdominal aorta and mesenteric arteries. No significant mesenteric artery stenosis. 2. Mild diffuse wall thickening involving multiple loops of ileum with minimally dilated loops of more proximal jejunum. No focal transition point. Differential considerations include infectious/inflammatory enteritis vs outflow mesenteric venous congestion which is not evaluated on this exam due to early arterial phase technique. Clinical correlation is recommended. Further evaluation may be performed with ultrasound examination and if necessary portal venous phase CT examination. Jonah Rodriguez MD Objective Remarks GENERAL: This is a thin, malnourished patient EYES: Extraocular motions intact ENT: Nose without bleeding NECK: Trachea midline. CARDIOVASCULAR: Regular rate and rhythm without murmurs RESPIRATORY: Clear to auscultation. Breath sounds equal bilaterally. No wheezes GASTROINTESTINAL: Abdomen soft, tender to deep palpation right lower quadrant but no rebound or guarding, nondistended. MUSCULOSKELETAL: Extremities without edema. no calf tenderness NEUROLOGICAL: Awake and alert. Motor and sensory grossly within normal limits. Normal speech. A/P Problem List: (1) Intractable abdominal pain ICD Code: R10.9 Status: Acute (2) Hyperkalemia ICD Code: E87.5 Status: Acute (3) Hyponatremia ICD Code: E87.1 Status: Acute Assessment and Plan 75 y/o male with a history of abdominal pain and nausea and vomiting for the last 8 months. Intractable abdominal pain with nausea, likely infectious due to recent travel to [place]. Also has been to [place], [place] Abdomen CT reviewed and shows Widely patent abdominal aorta and mesenteric arteries. No significant mesenteric artery stenosis. Mild diffuse wall thickening involving multiple loops of ileum with minimally dilated loops of more proximal jejunum. No focal transition point. Differential considerations include infectious/inflammatory enteritis vs outflow mesenteric venous congestion which is not evaluated on this exam due to early arterial phase technique. -I spoke w Amanda Charles, GI UNIT RECEPTIONIST explaining the situation. She agreed to go in with me again to speak w patient and she went over w patient why and EGD/ colonoscopy was warranted. Both of us tried our best to answer pt's questions. I stressed the importance of at least r/o any GI etiology including malignancy. Finally pt agreed to proceed w EGD/colonoscopy which will be scheduled for tomorrow morning. I stressed again the importance of f/u w CT chest as an outpatient. -Stool studies ordered not yet available- r/o parasitic infections -Hold Pradaxa for now -Antiemetics as needed Hyperkalemia resolved and hyponatremia improving. -continue IVF with NS -BMP in AM, and trend Abnormal chest xray finding Xray reviewed and shows at least 2 subcentimeter nodular opacities in the left lower lobe. The largest may reflect a nipple shadow. This can be further evaluated with CT examination on outpatient basis. -Patient does not want expensive inpatient workup, he rather do work up out patient -Patient will need CT chest as outpatient, he will f/u w his PCP Hx of Recent DVT - on lovenox therapeutic dose - will stop 12hrs ahead of possible GI procedures- ct pradaxa post procedure DVT prophylaxis: Lovenox therapeutic dose Discharge Planning EGD/colonoscopy in AM resume pradaxa post procedure pending results lovenox on hold spent >35 mins counseling patient, explaining to him the importance of a GI work -up, answering questions, coordinating care Rain Riojas MD Oct 07, 2016 10:19
[2016-10-07] MEDS ORDERED: PEG (High)/E-LYTE SOLN 4000 ML BTL PO ONE (16:00)
--- NOTE | 2016-10-07 19:04 | EKG ---
Date Performed: 10/06/2016 Time Performed: 15:17:06 PTAGE: 75 years EKG: Sinus rhythm NORMAL ECG NO PREVIOUS TRACING DOCTOR: Dirk Ahn Interpretating Date/Time 10/07/2016 19:03:22
[2016-10-08] VITALS: BP 106/58; PULSE 58; RESP 18; TEMP 97.8; O2SAT 97
[2016-10-08] MEDS: SODIUM CHLOR 0.9% 1000 ML INJ 1,000 ML IV SCH ×2 (01:11→09:45)
[2016-10-08 04:59] VITALS: BP 100/59; PULSE 72; RESP 18; TEMP 98.1; O2SAT 98
[2016-10-08 05:51] LABS: BASOPHIL % 0.5 % (0.0-2.0); EOSINOPHIL # 0.3 TH/MM3 (0-0.4); EOSINOPHIL % 3.2 % (0.0-4.0); HEMATOCRIT 39.1 % (39.0-51.0); HEMO FLAGS DIFF FINAL; LYMPH % 42.2 % (9.0-44.0); LYMPHOCYTE # 3.3 TH/MM3 (1.0-4.8); MEAN CORPUSCULAR HEMOGLOBIN 28.7 PG (27.0-34.0); MEAN CORPUSCULAR HGB CONC 32.6 % (32.0-36.0); MONO % 15.6 % (0.0-8.0); NEUT % 38.5 % (16.0-70.0); PLATELET COUNT 330 TH/MM3 (150-450); RED BLOOD COUNT 4.44 MIL/MM3 (4.50-5.90); RED CELL DISTRIBUTION WIDTH 14.4 % (11.6-17.2); WHITE BLOOD COUNT 7.9 TH/MM3 (4.0-11.0)
[2016-10-08 06:16] LABS: BICARBONATE 25.3 MEQ/L (21.0-32.0); CALCIUM-PROTEIN CORRECTED 8.4 MG/DL (8.5-10.1); TOTAL BILIRUBIN ADULT 0.3 MG/DL (0.2-1.0)
[2016-10-08 07:50] VITALS: BP 97/56; PULSE 72; RESP 18; TEMP 98.6; O2SAT 95
[2016-10-08] MEDS: SODIUM CHLORIDE 0.9% FLUSH 10 ML FLUSH IV FLUSH SCH ×2 (09:00→21:58)
[2016-10-08 10:20] VITALS: BP 97/56; PULSE 72; RESP 18; TEMP 98.6; O2SAT 95
[2016-10-08] MEDS ORDERED: PROPOFOL 200 MG/20 ML AMP IV ONE (11:58)
--- NOTE | 2016-10-08 12:29 | GIPROC ---
[facility] [address] [facility]. [facility], [address] EGD PROCEDURE REPORT EXAM DATE: 10/08/2016 PATIENT NAME: Jung Laurent MR #: [id number] BIRTHDATE: 1940 ATTENDING: Aleyda Gay MD ORDER #: [id number] FORMING MACHINE ADJUSTER: Isaias Lozano and Chuck Horner STATUS: inpatient INDICATIONS: The patient is a 75 yr old male here for an EGD due to diarrhea , weight loss PROCEDURE PERFORMED: EGD w/ biopsy MEDICATIONS: None and Per Anesthesia. TOPICAL ANESTHETIC: none CONSENT: The patient understands the risks and benefits of the procedure and understands that these risks include, but are not limited to: sedation, allergic reaction, infection, perforation and/or bleeding. Alternative means of evaluation and treatment include, among others: physical exam, x-rays, and/or surgical intervention. The patient elects to proceed with this endoscopic procedure. medical equipment was checked for proper function. Hand hygiene and appropriate measures for infection prevention was taken. After the risks, benefits and alternatives of the procedure were thoroughly explained, Informed consent was verified, confirmed and timeout was successfully executed by the treatment team. The patient was anesthetized with topical anesthesia and the EC-[id number] (Pedi C) endoscope was introduced through the mouth and advanced to the second portion of the duodenum. Retroflexed views revealed a hiatal hernia The gastroscope was then slowly withdrawn and removed. Duodenitis second portion-biopsy duodenitis duodenal bulb-biopsy gastritis antrum, body, fundud-biopsy duodenum second portion-diverticulum irregular z line -biopsy. ADVERSE EVENTS: There were no complications. IMPRESSIONS: 1. Duodenitis second portion-biopsy duodenitis duodenal bulb-biopsy gastritis antrum, body, fundud-biopsy duodenum second portion-diverticulum irregular z line -biopsy 2. Retroflexed views revealed a hiatal hernia RECOMMENDATIONS: 1. Await biopsy results. Biopsy results will not be ready for 7-10 days. If you don't hear from us in two weeks, call our office for biopsy results. 2. Continue PPI 3. Avoid NSAIDS PATIENT CONDITION: stable DISPOSITION: Inpatient REPEAT EXAM: EGD pending biopsy results Aleyda Gay MD eSigned: Aleyda Gay MD 10/08/2016 12:28 PM cc: PATIENT NAME: Jung Laurent MR#: [id number]
--- NOTE | 2016-10-08 12:33 | GIPROC ---
[facility] [address] [facility]. [facility], [address] COLONOSCOPY PROCEDURE REPORT EXAM DATE: 10/08/2016 PATIENT NAME: Jung Laurent MR #: [id number] BIRTHDATE: 1940 ENDOSCOPIST: Aleyda Gay MD ORDER #: [id number] BRAIDING MACHINE TENDER: Isaias Lozano and Chuck Horner STATUS: inpatient INDICATIONS: The patient is a 75 yr old male here for a colonoscopy due to diarrhea, abdominal pain, weight loss PROCEDURE PERFORMED: Colonoscopy with biopsy MEDICATIONS: None and Per Anesthesia. PREP QUALITY: fair PREP TYPE:GoLytely ESTIMATED BLOOD LOSS: None CONSENT: The patient understands the risks and benefits of the procedure and understands that these risks include, but are not limited to: sedation, allergic reaction, infection, perforation and/or bleeding. Alternative means of evaluation and treatment include, among others: physical exam, x-rays, and/or surgical intervention. The patient elects to proceed with this endoscopic procedure. medical equipment was checked for proper function. Hand hygiene and appropriate measures for infection prevention was taken. After the risks, benefits and alternatives of the procedure were thoroughly explained, Informed consent was verified, confirmed and timeout was successfully executed by the treatment team. A digital exam revealed external hemorrhoids The Pentax EC-[id number] endoscope was introduced through the anus and advanced to the cecum, which was identified by both the appendix and ileocecal valve. The instrument was then slowly withdrawn as the colon was fully examined. COLON FINDINGS: Diverticulosis sigmoid,descending random biopsies from ascending, descending erythema in sigmoid-biopsy erythema rectum-biopsy. Retroflexed views revealed internal hemorrhoids and Retroflexed views revealed small internal hemorrhoids The scope was then completely withdrawn from the patient and the procedure terminated. PROCEDURE WITHDRAWAL TIME:6minutes ADVERSE EVENTS: There were no complications. IMPRESSIONS: 1. Diverticulosis sigmoid,descending random biopsies from ascending, descending erythema in sigmoid-biopsy erythema rectum-biopsy 2. Retroflexed views revealed internal hemorrhoids 3. Retroflexed views revealed small internal hemorrhoids 4. Revealed external hemorrhoids RECOMMENDATIONS: 1. Await biopsy results. Biopsy results will not be ready for 7-10 days. If you don't hear from us in two weeks, call our office for results. 2. Probiotics from any [employer] or health food store 3. Yearly rectal exams 4. Restart anticoagulatio trial of alinia -3 days ppi if biopsies negative-capsule endoscopy, cta stool studies RECALL: Colonoscopy, pending biopsy results Aleyda Gay MD eSigned: Aleyda Gay MD 10/08/2016 12:32 PM cc: PATIENT NAME: Jung Laurent MR#: [id number]
[2016-10-08 15:42] VITALS: BP 125/75; PULSE 75; RESP 20; TEMP 97.6; O2SAT 98
--- NOTE | 2016-10-08 17:00 | RADRPT ---
EXAM DATE/TIME: 10/08/2016 15:07 [facility] COMPARISON: CTA ABDOMEN & PELVIS W 3D RECON, October 06, 2016, 16:56. INDICATIONS : Abdominal pain. Abnormal CT, visualize mesenteric vessels. MEDICAL HISTORY : Deep venous thrombosis. SURGICAL HISTORY : Appendectomy. ENCOUNTER: Initial ACUITY: 1 day PAIN SCORE: 0/10 LOCATION: Abdomen. FINDINGS: CT examination demonstrated mild diffuse wall thickening involving the ileum. Ultrasound exam is bein g performed to evaluate for possible venous outflow obstruction. Duplex interrogation of the portal and mesenteric veins were performed. The portal vein is widely pat ent. SMV appears to be patent to the mid to distal abdomen. The confluence of the SMV and portal vein are not visualized due to bowel gas. The IMV is obscured by bowel gas. There is no significant free fluid in the visualized portions of the abdomen. Because portions of the liver are grossly unremarkab le. CONCLUSION: 1. Main portal vein and SMV are patent. 2. IMV is obscured by overlying bowel gas. However, abnormality involving the ileum would correspond to SMV territory which appears patent. Jonah Rodriguez MD on October 08, 2016 at 16:54 Board Certified Radiologist. This report was verified electronically.
--- NOTE | 2016-10-08 18:02 | HHI.PR ---
Subjective Remarks Patient states he feels okay. He was able to eat some of his dinner. Denies any nausea at this time however he states he cannot eat a lot because if he does he will become nauseous. Denies any chest pain, shortness of breath. Denies any abdominal pain at this time. Objective Vitals Vital Signs Date Time Temp Pulse Resp B/P Pulse Ox O2 Delivery O2 Flow Rate FiO2 10/08/16 15:42 97.6 75 20 125/75 98 10/08/16 12:45 77 18 100/69 99 10/08/16 12:35 85 18 94/65 98 10/08/16 12:25 98.5 87 18 91/64 98 10/08/16 10:20 98.6 72 18 97/56 95 10/08/16 07:50 98.6 72 18 97/56 95 10/08/16 04:59 98.1 72 18 100/59 98 10/08/16 00:00 97.8 58 18 106/58 97 10/07/16 21:21 98.3 68 18 106/58 97 I/O 10/07/16 10/07/16 10/07/16 10/08/16 10/08/16 10/08/16 07:00 15:00 23:00 07:00 15:00 23:00 Intake Total 243 ml 900 ml Output Total 750 ml Balance -507 ml 900 ml Intake Oral 243 ml Other 900 ml Output Urine Total 750 ml # Voids 4 # Bowel Movements 3 Result Diagram: 10/08/16 0402 10/08/16 0402 Imaging Last Impressions Liver Ultrasound 10/08/16 0000 Signed Impressions: Service Date/Time: Saturday, October 08, 2016 15:07 - CONCLUSION: 1. Main portal vein and SMV are patent. 2. IMV is obscured by overlying bowel gas. However, abnormality involving the ileum would correspond to SMV territory which appears patent. Jonah Rodriguez MD Chest X-Ray 10/06/16 0000 Signed Impressions: Service Date/Time: Thursday, October 06, 2016 14:35 - CONCLUSION: 1. At least 2 subcentimeter nodular opacities in the left lower lobe. The largest may reflect a nipple shadow. This can be further evaluated with CT examination on outpatient basis. Jonah Rodriguez MD Abdomen/Pelvis CT 10/06/16 0000 Signed Impressions: Service Date/Time: Thursday, October 06, 2016 16:56 - CONCLUSION: 1. Widely patent abdominal aorta and mesenteric arteries. No significant mesenteric artery stenosis. 2. Mild diffuse wall thickening involving multiple loops of ileum with minimally dilated loops of more proximal jejunum. No focal transition point. Differential considerations include infectious/inflammatory enteritis vs outflow mesenteric venous congestion which is not evaluated on this exam due to early arterial phase technique. Clinical correlation is recommended. Further evaluation may be performed with ultrasound examination and if necessary portal venous phase CT examination. Jonah Rodriguez MD Objective Remarks GENERAL: This is a thin, malnourished patient EYES: Extraocular motions intact ENT: Nose without bleeding NECK: Trachea midline. CARDIOVASCULAR: Regular rate and rhythm without murmurs RESPIRATORY: Clear to auscultation. Breath sounds equal bilaterally. No wheezes GASTROINTESTINAL: Abdomen soft, tender to deep palpation right lower quadrant and epigastric area but no rebound or guarding, nondistended. MUSCULOSKELETAL: Extremities without edema. no calf tenderness NEUROLOGICAL: Awake and alert. Motor and sensory grossly within normal limits. Normal speech. A/P Problem List: (1) Intractable abdominal pain ICD Code: R10.9 Status: Acute (2) Hyperkalemia ICD Code: E87.5 Status: Acute (3) Hyponatremia ICD Code: E87.1 Status: Acute Assessment and Plan 75 y/o male with a history of abdominal pain and nausea and vomiting for the last 8 months. Intractable abdominal pain with nausea, likely infectious due to recent travel to [place]. Also has been to [place], [place] Abdomen CT reviewed and shows Widely patent abdominal aorta and mesenteric arteries. No significant mesenteric artery stenosis. Mild diffuse wall thickening involving multiple loops of ileum with minimally dilated loops of more proximal jejunum. Patient is status post EGD colonoscopy which showed duodenitis, gastritis status post biopsies. I'll show so the hiatal hernia. Patient also found to have diverticulosis with internal/external hemorrhoids. Biopsies were obtained as well. Liver ultrasound showed: "Main portal vein and SMV are patent." -Stool studies pending. R/o parasitic infections -Okay to resume anticoagulation per GI. Discussed with Dr. Gay -Antiemetics as needed Hyperkalemia and hyponatremia resolved -Resolved. Hep-Lock IV Abnormal chest xray finding Xray reviewed and shows at least 2 subcentimeter nodular opacities in the left lower lobe. The largest may reflect a nipple shadow. This can be further evaluated with CT examination on outpatient basis. -Patient does not want expensive inpatient workup, he rather do work up out patient -Patient will need CT chest as outpatient, he will f/u w his PCP Hx of Recent DVT -We'll resume Pradaxa DVT prophylaxis: pradaxa Discharge Planning Monitor patient overnight. Awaiting final recommendations from GI. Karen WHITAKER in [place] MD Oct 08, 2016 18:02
[2016-10-08] MEDS: NITAZOXANIDE 500 MG TAB PO SCH (20:05)
[2016-10-08 20:38] VITALS: BP 99/59; PULSE 83; RESP 18; TEMP 98.5; O2SAT 96
[2016-10-08] MEDS: DABIGATRAN ETEXILATE 75 MG CAP PO SCH (21:58)
[2016-10-09 06:20] LABS: HEMATOCRIT 36.6 % (39.0-51.0); REVIEW FLAG FINAL
[2016-10-09 06:27] VITALS: BP 100/59; PULSE 84; RESP 18; TEMP 98.5; O2SAT 94
[2016-10-09 07:45] VITALS: BP 105/64; PULSE 76; RESP 17; TEMP 98.7; O2SAT 94
--- NOTE | 2016-10-09 08:55 | HHI.PR ---
Subjective Remarks 75 y/o male with a history of abdominal pain and nausea and vomiting for the last 8 months. Patient states he has lost 42 lbs in 8 months, sick feeling after eating, easily full feeling, if he over eats he has severe nausea and vomiting. Also complains of 2-3 times a day diarrhea, green in color, with mucus for the last 6 weeks. Denies any black or red colored stools. The only medication he takes is Pradaxa for a DVT in his right leg August 2016. He was diagnosed in [place] and he was treated with Lovenox and recently seen his PCP that then switched him to Pradaxa. Denies any recent antibiotic use. Denies any hematuria or dysuria. He states he has slight fevers but does not measure it at home, he states his told him he was warm feeling. 10/09: Seen in his bedroom, status post Radiology test, awaiting for result and final by GI specialist for discharge, no vomit or diarrhea but continue with Nausea. Objective Vital Signs Date Time Temp Pulse Resp B/P Pulse Ox O2 Delivery O2 Flow Rate FiO2 10/09/16 07:45 98.7 76 17 105/64 94 10/09/16 06:27 98.5 84 18 100/59 94 10/08/16 20:38 98.5 83 18 99/59 96 10/08/16 15:42 97.6 75 20 125/75 98 10/08/16 12:45 77 18 100/69 99 10/08/16 12:35 85 18 94/65 98 10/08/16 12:25 98.5 87 18 91/64 98 10/08/16 10:20 98.6 72 18 97/56 95 I/O 10/08/16 10/08/16 10/08/16 10/09/16 10/09/16 10/09/16 07:00 15:00 23:00 07:00 15:00 23:00 Intake Total 900 ml Balance 900 ml Other 900 ml Result Diagram: 10/09/16 0513 10/08/16 0402 Imaging Last Impressions Liver Ultrasound 10/08/16 0000 Signed Impressions: Service Date/Time: Saturday, October 08, 2016 15:07 - CONCLUSION: 1. Main portal vein and SMV are patent. 2. IMV is obscured by overlying bowel gas. However, abnormality involving the ileum would correspond to SMV territory which appears patent. Jonah Rodriguez MD Chest X-Ray 10/06/16 0000 Signed Impressions: Service Date/Time: Thursday, October 06, 2016 14:35 - CONCLUSION: 1. At least 2 subcentimeter nodular opacities in the left lower lobe. The largest may reflect a nipple shadow. This can be further evaluated with CT examination on outpatient basis. Jonah Rodriguez MD Abdomen/Pelvis CT 10/06/16 0000 Signed Impressions: Service Date/Time: Thursday, October 06, 2016 16:56 - CONCLUSION: 1. Widely patent abdominal aorta and mesenteric arteries. No significant mesenteric artery stenosis. 2. Mild diffuse wall thickening involving multiple loops of ileum with minimally dilated loops of more proximal jejunum. No focal transition point. Differential considerations include infectious/inflammatory enteritis vs outflow mesenteric venous congestion which is not evaluated on this exam due to early arterial phase technique. Clinical correlation is recommended. Further evaluation may be performed with ultrasound examination and if necessary portal venous phase CT examination. Jonah Rodriguez MD Procedures Status post EGD found Duodenitis second portion status post duodenal biopsy gastritis antrum, diverticulum second portion of duodenum, Hiatal hernia, recommended to continue PPIs, avoid NSAIDs, Status post Colonoscopy found Diverticulosis of sigmoid descending Colon, erythema, Internal hemorrhoids and external hemorrhoids, recommended to follow biopsy performed Probiotics, yearly rectal exam, re start anticoagulation. trial of Alinia for three days. continue PPIs. Other Results Laboratory Tests Test 10/06/16 10/06/16 10/06/16 10/06/16 14:45 15:08 15:09 15:45 Amylase Level 30 U/L Lipase 91 U/L Lactic Acid Level 1.6 mmol/L Prothrombin Time 16.1 SEC Prothromb Time International 1.4 RATIO Ratio Activated Partial 48.8 SEC Thromboplast Time Urine Color YELLOW Urine Turbidity HAZY Urine pH 5.5 Urine Specific [place]bee 1.028 Urine Protein TRACE mg/dL Urine Glucose (UA) NEG mg/dL Urine Ketones NEG mg/dL Urine Occult Blood NEG Urine Nitrite NEG Urine Bilirubin NEG Urine Urobilinogen LESS THAN 2.0 MG/DL Urine Leukocyte Esterase NEG Urine RBC 1 /hpf Urine WBC 4 /hpf Urine Squamous Epithelial <1 /hpf Cells Urine Amorphous Sediment RARE Urine Mucus FEW /lpf Microscopic Urinalysis Comment CULT NOT INDICATED Test 10/07/16 10/07/16 10/08/16 10/08/16 06:37 11:50 04:02 21:29 Thyroid Stimulating Hormone 5.060 uIU/ML 3rd Gen Tumor Marker Alpha Fetoprotein 1.3 NG/ML Carcinoembryonic Antigen 10.7 NG/ML CA 19-9 Antigen 12.2 U/ML White Blood Count 7.9 TH/MM3 Red Blood Count 4.44 MIL/MM3 Mean Corpuscular Volume 88.0 FL Mean Corpuscular Hemoglobin 28.7 PG Mean Corpuscular Hemoglobin 32.6 % Concent Red Cell Distribution Width 14.4 % Platelet Count 330 TH/MM3 Mean Platelet Volume 7.3 FL Neutrophils (%) (Auto) 38.5 % Lymphocytes (%) (Auto) 42.2 % Monocytes (%) (Auto) 15.6 % Eosinophils (%) (Auto) 3.2 % Basophils (%) (Auto) 0.5 % Neutrophils # (Auto) 3.0 TH/MM3 Lymphocytes # (Auto) 3.3 TH/MM3 Monocytes # (Auto) 1.2 TH/MM3 Eosinophils # (Auto) 0.3 TH/MM3 Basophils # (Auto) 0.0 TH/MM3 CBC Comment DIFF FINAL Differential Comment Sodium Level 139 MEQ/L Potassium Level 4.0 MEQ/L Chloride Level 106 MEQ/L Carbon Dioxide Level 25.3 MEQ/L Anion Gap 8 MEQ/L Blood Urea Nitrogen 8 MG/DL Creatinine 0.95 MG/DL Estimat Glomerular Filtration 77 ML/MIN Rate Random Glucose 55 MG/DL Calcium Level 7.1 MG/DL Protein Corrected Calcium 8.4 MG/DL Total Bilirubin 0.3 MG/DL Aspartate Amino Transf 23 U/L (AST/SGOT) Alanine Aminotransferase 6 U/L (ALT/SGPT) Alkaline Phosphatase 95 U/L C-Reactive Protein 1.20 MG/DL Total Protein 4.7 GM/DL Albumin 1.3 GM/DL Vitamin B12 Level 772 PG/ML 25-Hydroxy Vitamin D Total 32.3 ng/ML Erythrocyte Sedimentation Rate 2 mm/hr Test 10/09/16 05:13 Hemoglobin 12.3 GM/DL Hematocrit 36.6 % Objective Remarks GENERAL: This is a thin, malnourished patient EYES: Extraocular motions intact ENT: Nose without bleeding NECK: Trachea midline. CARDIOVASCULAR: Regular rate and rhythm without murmurs RESPIRATORY: Clear to auscultation. Breath sounds equal bilaterally. No wheezes GASTROINTESTINAL: Abdomen soft, tender to deep palpation right lower quadrant and epigastric area but no rebound or guarding, nondistended. MUSCULOSKELETAL: Extremities without edema. no calf tenderness NEUROLOGICAL: Awake and alert. Motor and sensory grossly within normal limits. Normal speech. Medications and IVs Current Medications Medications (Trade) Dose Ordered Sig/Margo Route Start Time Stop Time Status Last Admin (NS Flush) 2 ml UNSCH PRN IV FLUSH 10/06/16 19:00 (NS Flush) 2 ml BID IV FLUSH 10/06/16 21:00 10/08/16 21:58 (Zofran Inj) 4 mg Q6H PRN IVP 10/06/16 19:00 (Narcan Inj) 0.4 mg UNSCH PRN IV 10/06/16 19:00 (Dorris 5-325 Mg) 1 tab Q4H PRN PO 10/06/16 19:00 (Dorris 10-325 Mg) 1 tab Q6H PRN PO 10/06/16 19:00 (Dilaudid Pf Inj) 0.5 mg Q4H PRN IV PUSH 10/06/16 19:00 (Reglan Inj) 5 mg Q8H PRN IV PUSH 10/06/16 22:45 (Lovenox Inj) 55 mg Q12H SQ 10/07/16 09:00 Hold 10/07/16 20:58 (Alinia) 500 mg Q12HR PO 10/08/16 21:00 (Pradaxa) 75 mg BID PO 10/08/16 21:00 10/08/16 21:58 A/P Assessment and Plan 75 y/o male with a history of abdominal pain and nausea and vomiting for the last 8 months. Intractable abdominal pain with nausea, likely infectious due to recent travel to [place]. Also has been to [place], [place] Abdomen CT reviewed and shows Widely patent abdominal aorta and mesenteric arteries. No significant mesenteric artery stenosis. Mild diffuse wall thickening involving multiple loops of ileum with minimally dilated loops of more proximal jejunum. Patient is status post EGD which showed duodenitis, gastritis status post biopsies. I'll show so the hiatal hernia. Patient also found to have diverticulosis with internal/external hemorrhoids. Biopsies were obtained as well. Liver ultrasound showed: "Main portal vein and SMV are patent." AFP and CA19-9 wnl, CEA elevated GI specialist asked for CT Enterography and awaiting for final recommendations for discharge. -Stool studies pending. R/o parasitic infections -Okay to resume anticoagulation per GI. Discussed with Dr. Gay -Antiemetics as needed Hyperkalemia and hyponatremia resolved -Resolved. Hep-Lock IV Abnormal chest xray finding Xray reviewed and shows at least 2 subcentimeter nodular opacities in the left lower lobe. The largest may reflect a nipple shadow. This can be further evaluated with CT examination on outpatient basis. -Patient does not want expensive inpatient workup, he rather do work up out patient -Patient will need CT chest as outpatient, he will f/u w his PCP Hx of Recent DVT -We'll resume Pradaxa DVT prophylaxis: Pradaxa Discharge Planning Awaiting final recommendations by GI specialist for discharge. Jacob Roberto MD Oct 09, 2016 08:55 Differential Comment Sodium Level 139 MEQ/L Potassium Level 4.0 MEQ/L Chloride Level 106 MEQ/L Carbon Dioxide Level 25.3 MEQ/L Anion Gap 8 MEQ/L Blood Urea Nitrogen 8 MG/DL Creatinine 0.95 MG/DL Estimat Glomerular Filtration 77 ML/MIN Rate Random Glucose 55 MG/DL Calcium Level 7.1 MG/DL Protein Corrected Calcium 8.4 MG/DL Total Bilirubin 0.3 MG/DL Aspartate Amino Transf 23 U/L (AST/SGOT) Alanine Aminotransferase 6 U/L (ALT/SGPT) Alkaline Phosphatase 95 U/L C-Reactive Protein 1.20 MG/DL Total Protein 4.7 GM/DL Albumin 1.3 GM/DL Vitamin B12 Level 772 PG/ML 25-Hydroxy Vitamin D Total 32.3 ng/ML Erythrocyte Sedimentation Rate 2 mm/hr Test 10/09/16 05:13 Hemoglobin 12.3 GM/DL Hematocrit 36.6 % Medications and IVs Current Medications Medications (Trade) Dose Ordered Sig/Margo Route Start Time Stop Time Status Last Admin (NS Flush) 2 ml UNSCH PRN IV FLUSH 10/06/16 19:00 (NS Flush) 2 ml BID IV FLUSH 10/06/16 21:00 10/08/16 21:58 (Zofran Inj) 4 mg Q6H PRN IVP 10/06/16 19:00 (Narcan Inj) 0.4 mg UNSCH PRN IV 10/06/16 19:00 (Dorris 5-325 Mg) 1 tab Q4H PRN PO 10/06/16 19:00 (Dorris 10-325 Mg) 1 tab Q6H PRN PO 10/06/16 19:00 (Dilaudid Pf Inj) 0.5 mg Q4H PRN IV PUSH 10/06/16 19:00 (Reglan Inj) 5 mg Q8H PRN IV PUSH 10/06/16 22:45 (Lovenox Inj) 55 mg Q12H SQ 10/07/16 09:00 Hold 10/07/16 20:58 (Alinia) 500 mg Q12HR PO 10/08/16 21:00 (Pradaxa) 75 mg BID PO 10/08/16 21:00 10/08/16 21:58 Jacob Roberto MD Oct 09, 2016 08:55
[2016-10-09] MEDS ORDERED: IOHEXOL 350 MG/ML 10 ML VIAL (for RAD DIAG) IV ONE (08:57)
[2016-10-09] MEDS: DABIGATRAN ETEXILATE 75 MG CAP PO SCH (09:33)
[2016-10-09] MEDS: NITAZOXANIDE 500 MG TAB PO SCH (09:33)
[2016-10-09] MEDS: SODIUM CHLORIDE 0.9% FLUSH 10 ML FLUSH IV FLUSH SCH (09:33)
--- NOTE | 2016-10-09 09:36 | RADRPT ---
EXAM DATE/TIME: 10/09/2016 08:48 [facility] COMPARISON: No previous studies available for comparison. INDICATIONS : Weight loss IV CONTRAST: 90 cc Omnipaque 350 (iohexol) IV ORAL CONTRAST: Prescribed oral contrast ingested. RADIATION DOSE: 9.96 CTDIvol (mGy) MEDICAL HISTORY : None SURGICAL HISTORY : Appendectomy. ENCOUNTER: Initial ACUITY: 1 day PAIN SCALE: 0/10 LOCATION: Abdomen TECHNIQUE: Prior to image acquisition, an oral contrast regimen consisting of neutral oral contrast material was consumed by the patient. Small bowel paralysis was achieved with slow intravenous administration of 1mg glucagon. Helical scanning of the entire abdomen and pelvis was then performed using a multi-dete ctor CT scanner. Coronal thin-section reconstruction was also performed. Using automated exposure con trol and adjustment of the mA and/or kV according to patient size, radiation dose was kept as low as reasonably achievable to obtain optimal diagnostic quality images. DICOM format image data is avail able electronically for review and comparison. FINDINGS: CT scan of the abdomen and pelvis was performed with dynamic administration of IV contrast. CT enter ography technique was used. No gastric wall masses are identified. There is good distention of the duodenum proximally without wall thickening or mass. There are numerous loops of non-dilated or dist ended jejunum and ileum. I do not see any focal masses. There is no significant wall thickening whe n accounting for under distention. There is a small amount of fluid in the right side of the abdomen in the pericolic gutter and minimal free fluid in the pelvis. There is stool throughout the colon. No colonic wall thickening is identified. The solid organs are unremarkable. The mesenteric veins are unremarkable. There are numerous small lymph nodes scattered throughout the mesentery, none of w hich are pathologically enlarged. Small bilateral pleural effusion left greater than right. Mild bibasilar atelectasis. There is some fluid-filled loops of distended jejunum in the anterior abdomen without any definite wall thickening or mass. CONCLUSION: Some areas of mildly distended jejunum but mostly decompressed small bowel. No focal small bowel mas s is identified. Stool filled colon. Normal size mesenteric lymph nodes and a tiny amount of free fl uid in the abdomen. No significant pathology is noted. Eb Lehman MD on October 09, 2016 at 9:16 Board Certified Radiologist. This report was verified electronically.
[2016-10-09 12:56] VITALS: BP 96/61; PULSE 79; RESP 21; TEMP 98.4; O2SAT 96
--- NOTE | 2016-10-09 13:07 | HHI.GIFU ---
Subjective Remarks Resting in bed. States he still has nausea. No vomiting. No abdominal pain. Does not care for the hospital food. Did tolerate a sub sandwich from [employer] last night. Objective Vitals I&O Vital Signs Date Time Temp Pulse Resp B/P Pulse Ox O2 Delivery O2 Flow Rate FiO2 10/09/16 07:45 98.7 76 17 105/64 94 10/09/16 06:27 98.5 84 18 100/59 94 10/08/16 20:38 98.5 83 18 99/59 96 10/08/16 15:42 97.6 75 20 125/75 98 I/O 10/08/16 10/08/16 10/08/16 10/09/16 10/09/16 10/09/16 07:00 15:00 23:00 07:00 15:00 23:00 Intake Total 900 ml Balance 900 ml Other 900 ml Laboratory Laboratory Tests Test 10/08/16 10/09/16 21:29 05:13 Erythrocyte Sedimentation Rate 2 Hemoglobin 12.3 Hematocrit 36.6 Date/Time Procedure Status Source Growth 10/07/16 18:55 Stool Occult Blood (LIZ) - Final Complete Stool Stool HEMOCCULT POSITIVE 10/07/16 18:55 Fungal Smear - Final Resulted Stool Stool 10/07/16 18:55 Fungal Culture Resulted Stool Stool Pending 10/07/16 18:55 Cryptosporidium Exam - Final Complete Stool Stool NEGATIVE - NO CRYPTOSPORIDIUM ANTIGEN... 10/07/16 18:55 Giardia Antigen (LIZ) - Final Complete Stool Stool NEGATIVE - NO GIARDIA ANTIGEN DETECTE... 10/07/16 18:55 - Final Complete Stool Stool NO ENTERIC PATHOGENS DETECTED BY PCR... 10/07/16 18:55 Cancelled Stool Stool 10/06/16 15:15 Aerobic Blood Culture - Preliminary Resulted Blood Peripheral NO GROWTH IN 3 DAYS 10/06/16 15:15 Anaerobic Blood Culture - Preliminary Resulted Blood Peripheral NO GROWTH IN 3 DAYS Imaging Last Impressions Abdomen/Pelvis CT 10/09/16 0000 Signed Impressions: Service Date/Time: September 08:48 - CONCLUSION: Some areas of mildly distended jejunum but mostly decompressed small bowel. No focal small bowel mass is identified. Stool filled colon. Normal size mesenteric lymph nodes and a tiny amount of free fluid in the abdomen. No significant pathology is noted. Eb Lehman MD Liver Ultrasound 10/08/16 0000 Signed Impressions: Service Date/Time: Saturday, October 08, 2016 15:07 - CONCLUSION: 1. Main portal vein and SMV are patent. 2. IMV is obscured by overlying bowel gas. However, abnormality involving the ileum would correspond to SMV territory which appears patent. Jonah Rodriguez MD Chest X-Ray 10/06/16 0000 Signed Impressions: Service Date/Time: Thursday, October 06, 2016 14:35 - CONCLUSION: 1. At least 2 subcentimeter nodular opacities in the left lower lobe. The largest may reflect a nipple shadow. This can be further evaluated with CT examination on outpatient basis. Jonah Rodriguez MD Physical Exam HEENT: Normocephalic; atraumatic; no jaundice. CHEST: CTA CARDIAC: RRR ABDOMEN: Soft, nondistended, nontender; no hepatosplenomegaly; bowel sounds are present in all four quadrants. EXTREMITIES: No clubbing, cyanosis, or edema. SKIN: Normal; no rash; no jaundice. COTTON WRINGER: No focal deficits; alert and oriented times three. Assessment and Plan Plan ASSESSMENT: - Abdominal pain with associated N/V/D. CT scan abdomen and pelvis (10/06/16)-- ----> 1. Widely patent abdominal aorta and mesenteric arteries. No significant mesenteric artery stenosis. 2. Mild diffuse wall thickening involving multiple loops of ileum with minimally dilated loops of more proximal jejunum. No focal transition point. Differential considerations include infectious/inflammatory enteritis vs outflow mesenteric venous congestion which is not evaluated on this exam due to early arterial phase technique. Clinical correlation is recommended. Further evaluation may be performed with ultrasound examination and if necessary portal venous phase CT examination. No abx in 6 months. Does frequently travel for work- [place] last year and just returned from [place] 3 weeks ago. No known family hx of esophageal, gastric, colorectal cancer. Stool studies fungal culture pending. Negative for cryptosporidium/giardia. No enteric pathogens. S/P EGD/Colonoscopy (10/08/16)-----> 1. Duodenitis second portion-biopsy duodenitis duodenal bulb-biopsy, gastritis antrum, body, fundud-biopsy duodenum second portion-diverticulum irregular z line - biopsy 2. Retroflexed views revealed a hiatal hernia 1. Diverticulosis sigmoid,descending random biopsies from ascending, descending erythema in sigmoid-biopsy erythema rectum-biopsy 2. Retroflexed views revealed internal hemorrhoids 3. Retroflexed views revealed small internal hemorrhoids 4. Revealed external hemorrhoids Pathology pending. Abdomen/Pelvis CT (10/09/16)-----> Some areas of mildly distended jejunum but mostly decompressed small bowel. No focal small bowel mass is identified. Stool filled colon. Normal size mesenteric lymph nodes and a tiny amount of free fluid in the abdomen. No significant pathology is noted. Celiac panel pending. JOSEPH pending. Gastrin pending. AFP 1.3, CEA 10.7, Ca19-9 12.2. Clinically, abdominal pain and diarrhea improved, still having nausea. PPI. Alinia, Trial of reglan. - Anorexia, Early Satiety, Abn. Wt. Loss. 42 lbs over [address] enterography as above. Liver Ultrasound (10/08/16)----> 1. Main portal vein and SMV are patent. 2. IMV is obscured by overlying bowel gas. However, abnormality involving the ileum would correspond to SMV territory which appears patent. - Right lower extremity DVT (diagnosed in August of 2016) and takes Pradaxa - LLL Lung nodule, CT scan recommended, patient refused and wants to proceed as outpatient. - TSH elevated 5.060. Per attending. PLAN: - SAVI - Await final fungal stool studies - Await Celiac testing, Gastrin testing - PPI - Trial of Reglan - Trial of Alinia - Zofran prn - Capsule endoscopy as outpatient - Needs outpatient follow up with dermatology, primary, GI - Pt wants outpatient workup of lung nodule - If tolerates diet, okay to d/c home from GI standpoint - FU [facility] 2 weeks. - Supportive care - Further recommendations to follow based on results of above - Pt seen and examined by Dr. Gay and myself and this note is written on her behalf Amanda Charles Oct 09, 2016 13:07
[2016-10-09] MEDS ORDERED: HYDR-3516 PO (13:21)
[2016-10-09] MEDS ORDERED: METO10TA PO (13:21)
[2016-10-09] MEDS ORDERED: ALIN500T PO (13:21)
--- NOTE | 2016-10-09 13:24 | HHI.DS ---
Discharge Summary Admission Date Oct 06, 2016 at 19:03 Discharge Date: Oct 09, 2016 Admitting Diagnosis Intractable abdominal pain with N/V, enteritis, lung nodules (1) Intractable abdominal pain ICD Code: R10.9 Diagnosis: Principal (2) Hyperkalemia ICD Code: E87.5 Diagnosis: Principal (3) Hyponatremia ICD Code: E87.1 Diagnosis: Principal Procedures Status post EGD found Duodenitis second portion status post duodenal biopsy gastritis antrum, diverticulum second portion of duodenum, Hiatal hernia, recommended to continue PPIs, avoid NSAIDs, Status post Colonoscopy found Diverticulosis of sigmoid descending Colon, erythema, Internal hemorrhoids and external hemorrhoids, recommended to follow biopsy performed Probiotics, yearly rectal exam, re start anticoagulation. trial of Alinia for three days. continue PPIs. Brief History - From Admission Written by Nelda Cummings, acting as scribe for [Re] on 10/06/16 at 22:10. 75 y/o male with a history of abdominal pain and nausea and vomiting for the last 8 months. Patient states he has lost 42 lbs in 8 months, sick feeling after eating, easily full feeling, if he over eats he has severe nausea and vomiting. Also complains of 2-3 times a day diarrhea, green in color, with mucus for the last 6 weeks. Denies any black or red colored stools. The only medication he takes is Pradaxa for a DVT in his right leg August 2016. He was diagnosed in [place] and he was treated with Lovenox and recently seen his PCP that then switched him to Pradaxa. Denies any recent antibiotic use. Denies any hematuria or dysuria. He states he has slight fevers but does not measure it at home, he states his told him he was warm feeling. CBC/BMP: 10/09/16 0513 10/08/16 0402 Significant Findings Laboratory Tests Test 10/06/16 10/06/16 10/06/16 10/07/16 14:45 15:09 15:45 06:37 Monocytes (%) (Auto) 12.2 % 13.7 % (0.0-8.0) (0.0-8.0) Monocytes # (Auto) 1.2 TH/MM3 1.2 TH/MM3 (0-0.9) (0-0.9) Sodium Level 129 MEQ/L 135 MEQ/L (136-145) (136-145) Potassium Level 5.4 MEQ/L (3.5-5.1) Estimat Glomerular Filtration 63 ML/MIN (>89) 86 ML/MIN (>89) Rate Random Glucose 73 MG/DL 67 MG/DL (74-106) (74-106) Calcium Level 7.7 MG/DL 7.0 MG/DL (8.5-10.1) (8.5-10.1) Alanine Aminotransferase 8 U/L (12-78) (ALT/SGPT) Alkaline Phosphatase 120 U/L (45-117) Total Protein 5.9 GM/DL 4.3 GM/DL (6.4-8.2) (6.4-8.2) Albumin 1.3 GM/DL (3.4-5.0) Prothrombin Time 16.1 SEC (9.8-11.6) Activated Partial 48.8 SEC Thromboplast Time (24.3-30.1) Urine Turbidity HAZY (CLEAR) Urine Mucus FEW /lpf (OCC) Red Blood Count 4.17 MIL/MM3 (4.50-5.90) Hemoglobin 11.8 GM/DL (13.0-17.0) Hematocrit 36.6 % (39.0-51.0) Mean Platelet Volume 6.7 FL (7.0-11.0) Thyroid Stimulating Hormone 5.060 uIU/ML 3rd Gen (0.358-3.740) Test 10/07/16 10/08/16 10/09/16 11:50 04:02 05:13 Carcinoembryonic Antigen 10.7 NG/ML (0.2-5.0) Red Blood Count 4.44 MIL/MM3 (4.50-5.90) Hemoglobin 12.7 GM/DL 12.3 GM/DL (13.0-17.0) (13.0-17.0) Monocytes (%) (Auto) 15.6 % (0.0-8.0) Monocytes # (Auto) 1.2 TH/MM3 (0-0.9) Estimat Glomerular Filtration 77 ML/MIN (>89) Rate Random Glucose 55 MG/DL (74-106) Calcium Level 7.1 MG/DL (8.5-10.1) Protein Corrected Calcium 8.4 MG/DL (8.5-10.1) Alanine Aminotransferase 6 U/L (12-78) (ALT/SGPT) C-Reactive Protein 1.20 MG/DL (0.00-0.30) Total Protein 4.7 GM/DL (6.4-8.2) Albumin 1.3 GM/DL (3.4-5.0) Hematocrit 36.6 % (39.0-51.0) Imaging Last Impressions Abdomen/Pelvis CT 10/09/16 0000 Signed Impressions: Service Date/Time: September 08:48 - CONCLUSION: Some areas of mildly distended jejunum but mostly decompressed small bowel. No focal small bowel mass is identified. Stool filled colon. Normal size mesenteric lymph nodes and a tiny amount of free fluid in the abdomen. No significant pathology is noted. Eb Lehman MD Liver Ultrasound 10/08/16 0000 Signed Impressions: Service Date/Time: Saturday, October 08, 2016 15:07 - CONCLUSION: 1. Main portal vein and SMV are patent. 2. IMV is obscured by overlying bowel gas. However, abnormality involving the ileum would correspond to SMV territory which appears patent. Jonah Rodriguez MD Chest X-Ray 10/06/16 0000 Signed Impressions: Service Date/Time: Thursday, October 06, 2016 14:35 - CONCLUSION: 1. At least 2 subcentimeter nodular opacities in the left lower lobe. The largest may reflect a nipple shadow. This can be further evaluated with CT examination on outpatient basis. Jonah Rodriguez MD PE at Discharge GENERAL: This is a thin, malnourished patient EYES: Extraocular motions intact ENT: Nose without bleeding NECK: Trachea midline. CARDIOVASCULAR: Regular rate and rhythm without murmurs RESPIRATORY: Clear to auscultation. Breath sounds equal bilaterally. No wheezes GASTROINTESTINAL: Abdomen soft, tender to deep palpation right lower quadrant and epigastric area but no rebound or guarding, nondistended. MUSCULOSKELETAL: Extremities without edema. no calf tenderness NEUROLOGICAL: Awake and alert. Motor and sensory grossly within normal limits. Normal speech. Hospital Course 75 y/o male with a history of abdominal pain and nausea and vomiting for the last 8 months. Patient states he has lost 42 lbs in 8 months, sick feeling after eating, easily full feeling, if he over eats he has severe nausea and vomiting. Also complains of 2-3 times a day diarrhea, green in color, with mucus for the last 6 weeks. Denies any black or red colored stools. The only medication he takes is Pradaxa for a DVT in his right leg August 2016. He was diagnosed in [place] and he was treated with Lovenox and recently seen his PCP that then switched him to Pradaxa. Denies any recent antibiotic use. Denies any hematuria or dysuria. He states he has slight fevers but does not measure it at home, he states his told him he was warm feeling. 10/09: Seen in his bedroom, status post Radiology test, awaiting for result and final by GI specialist for discharge, no vomit or diarrhea but continue with Nausea. at this time tolerating diet and recommended for discharge by GI specialist. Assessment and Plan 75 y/o male with a history of abdominal pain and nausea and vomiting for the last 8 months. Intractable abdominal pain with nausea, likely infectious due to recent travel to [place]. Also has been to [place], [place] Abdomen CT reviewed and shows Widely patent abdominal aorta and mesenteric arteries. No significant mesenteric artery stenosis. Mild diffuse wall thickening involving multiple loops of ileum with minimally dilated loops of more proximal jejunum. Patient is status post EGD which showed duodenitis, gastritis status post biopsies. I'll show so the hiatal hernia. Patient also found to have diverticulosis with internal/external hemorrhoids. Biopsies were obtained as well. Liver ultrasound showed: "Main portal vein and SMV are patent." AFP and [id number] wnl, CEA elevated GI specialist asked for CT Enterography and awaiting for final recommendations for discharge. -Stool studies pending. R/o parasitic infections -Okay to resume anticoagulation per GI. Discussed with Dr. Gay -Antiemetics as needed Hyperkalemia and hyponatremia resolved -Resolved. Hep-Lock IV Abnormal chest xray finding Xray reviewed and shows at least 2 subcentimeter nodular opacities in the left lower lobe. The largest may reflect a nipple shadow. This can be further evaluated with CT examination on outpatient basis. -Patient does not want expensive inpatient workup, he rather do work up out patient -Patient will need CT chest as outpatient, he will f/u w his PCP Hx of Recent DVT -We'll resume Pradaxa DVT prophylaxis: Pradaxa Discharge Planning OKAY TO DISCHARGE FROM GI SPECIALIST IF TOLERATES DIET AND IS TOLERATING DIET. Pt Condition on Discharge: Good Discharge Disposition: Discharge Home Discharge Time: <= 30 minutes Discharge Instructions DIET: Follow Instructions for: As Tolerated, No Restrictions Activities you can perform: Regular-No Restrictions Jacob Roberto MD Oct 09, 2016 13:24
[2016-10-09] MEDS ORDERED: METOCLOPRAMIDE HCL 10 MG TAB PO SCH (16:00)
[2016-10-11 03:51] LABS: IGA SERUM 347 mg/dL (81-463); TISSUE TRANSGLUTAMINASE AB IGG ND U/mL (())
== END 2016-10-09 15:59 | disposition home or self-care (01) | DRG 641 ==
LOC: NEPC 13:43 → NEDA 18:48 → OBSVTOIN 19:03 → NEPGCP 20:32
PROVIDERS: ADMIT Internal Medicine; ATTEND Internal Medicine
PROC: 0DBP8ZX Excision of Rectum, Via Natural or Artificial Opening Endoscopic, Diagnostic (ICD-10-PCS; 2016-10-08)
PROC: 0DBM8ZX Excision of Descending Colon, Via Natural or Artificial Opening Endoscopic, Diagnostic (ICD-10-PCS; 2016-10-08)
PROC: 0DB98ZX Excision of Duodenum, Via Natural or Artificial Opening Endoscopic, Diagnostic (ICD-10-PCS; 2016-10-08)
PROC: 0DB68ZX Excision of Stomach, Via Natural or Artificial Opening Endoscopic, Diagnostic (ICD-10-PCS; 2016-10-08)
PROC: 0DB48ZX Excision of Esophagogastric Junction, Via Natural or Artificial Opening Endoscopic, Diagnostic (ICD-10-PCS; 2016-10-08)
PROC: 0DBK8ZX Excision of Ascending Colon, Via Natural or Artificial Opening Endoscopic, Diagnostic (ICD-10-PCS; principal; 2016-10-08 11:33)
PROC: 0DBN8ZX Excision of Sigmoid Colon, Via Natural or Artificial Opening Endoscopic, Diagnostic (ICD-10-PCS; 2016-10-08 11:33)
DX: R63.0 Anorexia (principal); E46 Unspecified protein-calorie malnutrition; E87.5 Hyperkalemia; Z68.1 Body mass index [BMI] 19.9 or less, adult; E87.1 Hypo-osmolality and hyponatremia; R19.7 Diarrhea, unspecified; K29.80 Duodenitis without bleeding; K57.10 Diverticulosis of small intestine without perforation or abscess without bleeding; K29.70 Gastritis, unspecified, without bleeding; K44.9 Diaphragmatic hernia without obstruction or gangrene; K57.30 Diverticulosis of large intestine without perforation or abscess without bleeding; K64.8 Other hemorrhoids; K64.4 Residual hemorrhoidal skin tags; Z86.718 Personal history of other venous thrombosis and embolism; Z79.02 Long term (current) use of antithrombotics/antiplatelets; F17.210 Nicotine dependence, cigarettes, uncomplicated; R91.1 Solitary pulmonary nodule; R68.81 Early satiety; R10.9 Unspecified abdominal pain
CPT/HCPCS: 71010; 74174; 74177; 80048; 80053; 81001; 82105; 82150; 82272; 82306; 82378; 82607; 82784; 82941; 83516; 83605; 83690; 84155; 84443; 85014; 85018; 85025; 85610; 85652; 85730; 86038; 86140; 86301; 87015; 87040; 87102; 87116; 87206; 87328; 87329; 87338; 87506; 88305; 88312; 93005; 93975; J1650; J2405; J2765; J7030; Q9967